=== PATIENT | female | born 1930 | race Caucasian/White ===

== ENCOUNTER 2017-12-28 09:41 | Day surgery (SDC) | payer MEDICARE, OTHER ==
[~2017-12-28] VITALS: Ht 152.4 cm; Wt 63.9 kg
[~2017-12-28 09:41] MED LIST: ADVAIR 250/28 DISKUS IH; ASPIRIN 32325 MG/TAB PO; IRON FERROUS S325 MG PO; MULTI VITAMINS1 TAB PO; MULTIPLE VITAMI1 TA1 PO; MVI; NASACORT AQ N16.5 GM NS; NITROSTAT0.4 MG/TAB SL; [UNRECOGNIZED DRUG - OTHER]; [UNRECOGNIZED DRUG - OTHER]
[2017-12-28] MEDS ORDERED: ASPIRIN 81M81 MG/TA2 PO (10:21)
[2017-12-28] MEDS ORDERED: B COMPLEX #11 TAB PO (10:22)
[2017-12-28] MEDS ORDERED: PROFE180 MG PO (10:23)
[2017-12-28] MEDS ORDERED: OLIVE LEAF (10:26)
[2017-12-28] MEDS ORDERED: OSCAL 500 TAB500 MG PO (10:26)
[2017-12-28 10:39] VITALS: BP 154/76; PULSE 47; TEMP 98
[2017-12-28 11:55] VITALS: BP 157/80; PULSE 57; TEMP 97.6
[2017-12-28 12:10] VITALS: BP 165/92; PULSE 64
[2017-12-28 12:25] VITALS: BP 171/94; PULSE 67
[2017-12-28 12:54] VITALS: BP 117/68; PULSE 51
== END 2017-12-28 12:40 | disposition home or self-care (01) ==
LOC: SDCO 09:41
DX: D12.4 Benign neoplasm of descending colon (principal); K57.30 Diverticulosis of large intestine without perforation or abscess without bleeding; K64.0 First degree hemorrhoids; K21.9 Gastro-esophageal reflux disease without esophagitis; I10 Essential (primary) hypertension; J45.909 Unspecified asthma, uncomplicated; E78.00 Pure hypercholesterolemia, unspecified; M19.90 Unspecified osteoarthritis, unspecified site; Z90.710 Acquired absence of both cervix and uterus; Z90.49 Acquired absence of other specified parts of digestive tract; Z88.1 Allergy status to other antibiotic agents; Z88.0 Allergy status to penicillin; Z86.010 Personal history of colon polyps
CPT/HCPCS: OP; J2704; J3010; J7120